=== PATIENT | female | born 1975 | race Caucasian/White ===

== ENCOUNTER 2024-09-16 13:45 | Outpatient (REF) | payer MEDICARE, MEDICAID, SELFPAY ==
[2024-09-16 14:33] LABS: HCT 37.1 % (36.0-46.0); HGB 11.9 g/dL (11.2-15.7); MCH 26.6 pg (27.0-33.0); MCHC 32.1 % (32.0-36.0); MCV 83 fL (80-95); MPV 10.4 fL (8.0-11.0); Platelet Count 393 10^3/uL (130-400); RBC 4.47 10^6/uL (3.93-5.22); RDW 19.1 % (11.7-14.6); RDW-SD 58.4 fL; WBC 7.58 10^3/uL (4.4-10.8)
== END 2024-09-16 13:46 | disposition home or self-care (01) ==
LOC: NCHCN 13:45
PROVIDERS: PCP Family Medicine; Visit Provider Family Medicine
DX: D50.9 Iron deficiency anemia, unspecified (principal)
CPT/HCPCS: 85027

== ENCOUNTER 2024-10-30 21:33 | Outpatient (REF) | payer MEDICARE, MEDICAID, SELFPAY ==
[2024-10-30 21:20] LABS: HCT 32.1 % (36.0-46.0); HGB 10.1 g/dL (11.2-15.7); MCH 26.8 pg (27.0-33.0); MCHC 31.5 % (32.0-36.0); MCV 85 fL (80-95); MPV 11.2 fL (8.0-11.0); Platelet Count 340 10^3/uL (130-400); RBC 3.77 10^6/uL (3.93-5.22); RDW 15.2 % (11.7-14.6); RDW-SD 46.5 fL; WBC 7.73 10^3/uL (4.4-10.8)
[2024-10-30 21:33] LABS: ALT 56 U/L (14-59); AST 36 U/L (15-37); Albumin 3.5 g/dL (3.4-5.0); Alkaline Phosphatase 107 U/L (46-116); Anion Gap 8.6 mmol/L (3-11); BUN 12 mg/dL (7-18); Bilirubin, Total 0.22 mg/dL (0.2-1.0); CO2 25.4 mmol/L (21.0-32.0); CREATININE 0.9 mg/dL (0.55-1.02); Chloride 111 mmol/L (98-107); Estimated GFR 79.35 (mL/min/1.73m2); Glucose 96 mg/dL (74-106); Lipase 167 U/L (<78); Potassium 3.9 mmol/L (3.5-5.1); Sodium 145 mmol/L (136-145); Total Protein 7.1 g/dL (6.4-8.2)
== END 2024-10-30 21:34 | disposition home or self-care (01) ==
LOC: NCHCN 21:33
PROVIDERS: PCP Family Medicine; Visit Provider Family Medicine
DX: R10.9 Unspecified abdominal pain (principal)
CPT/HCPCS: 80053; 83690; 85027

== ENCOUNTER 2025-07-27 22:18 | Outpatient (REF) | payer MEDICARE, MEDICAID, SELFPAY ==
[2025-07-27 22:18] LABS: Abs Immature Grans 0.03 10^3/uL (0.0-0.06); HCT 37.6 % (36.0-46.0); HGB 12.1 g/dL (11.2-15.7); Immature Grans % 0.3 %; MCH 29.1 pg (27.0-33.0); MCHC 32.2 % (32.0-36.0); MCV 90 fL (80-95); MPV 10.4 fL (8.0-11.0); Platelet Count 302 10^3/uL (130-400); RBC 4.16 10^6/uL (3.93-5.22); RDW 14.0 % (11.7-14.6); RDW-SD 46.3 fL; WBC 9.17 10^3/uL (4.4-10.8)
[2025-07-27 22:37] LABS: ALT 67 U/L (14-59); AST 26 U/L (15-37); Albumin 3.8 g/dL (3.4-5.0); Alkaline Phosphatase 77 U/L (46-116); Anion Gap 6.7 mmol/L (3-11); BUN 14 mg/dL (7-18); Bilirubin, Total 0.3 mg/dL (0.2-1.0); CO2 29.3 mmol/L (21.0-32.0); Calcium 9.2 mg/dL (8.5-10.1); Chloride 105 mmol/L (98-107); Estimated GFR 90.83 (mL/min/1.73m2); Glucose 103 mg/dL (74-106); Potassium 3.8 mmol/L (3.5-5.1); Sodium 141 mmol/L (136-145); TSH 1.89 uIU/mL (0.36-3.74); Total Protein 7.6 g/dL (6.4-8.2)
[2025-07-27 22:45] LABS: Ferritin 15 ng/mL (8-252)
[2025-07-28 15:21] LABS: Iron 70 ug/dL (50-170); Total Iron Binding Capacity 423 ug/dL (250-450)
== END 2025-07-27 22:19 | disposition home or self-care (01) ==
LOC: NCHCN 22:18
PROVIDERS: Physician Assistant; PCP Family Medicine; Visit Provider Family Medicine
DX: R63.4 Abnormal weight loss (principal); Z98.84 Bariatric surgery status; E61.1 Iron deficiency
CPT/HCPCS: 80053; 82728; 83540; 83550; 84439; 84443; 85025

== ENCOUNTER 2025-10-12 16:16 | Outpatient (REF) | payer MEDICARE, SELFPAY ==
[2025-10-12 16:11] LABS: HCT 37.8 % (36.0-46.0); HGB 12.2 g/dL (11.2-15.7); MCH 28.6 pg (27.0-33.0); MCHC 32.3 % (32.0-36.0); MCV 89 fL (80-95); MPV 10.3 fL (8.0-11.0); Platelet Count 327 10^3/uL (130-400); RBC 4.26 10^6/uL (3.93-5.22); RDW 13.8 % (11.7-14.6); RDW-SD 44.4 fL; WBC 6.12 10^3/uL (4.4-10.8)
[2025-10-12 16:36] LABS: ALT 66 U/L (10-49); AST 43 U/L (<34); Albumin 4.3 g/dL (3.2-5.0); Alkaline Phosphatase 124 U/L (46-116); Anion Gap 8 mmol/L (3-11); BUN 11 mg/dL (9-23); Bilirubin, Total 0.30 mg/dL (0.2-1.2); CO2 27.0 mmol/L (20.0-31.0); Calcium 8.8 mg/dL (8.3-10.6); Chloride 109 mmol/L (98-107); Glucose 83 mg/dL (74-106); Potassium 3.8 mmol/L (3.5-5.1); Sodium 144 mmol/L (136-145); Total Protein 7.2 g/dL (5.7-8.2)
== END 2025-10-12 16:17 | disposition home or self-care (01) ==
LOC: NCHCN 16:16
PROVIDERS: PCP Family Medicine; Visit Provider Family Medicine
DX: D64.9 Anemia, unspecified (principal); R74.01 Elevation of levels of liver transaminase levels
CPT/HCPCS: 80053; 85027